=== PATIENT | male | born 1970 | race African-American/Black ===

== ENCOUNTER 2017-08-12 19:44 | Emergency (ER) | payer SELFPAY ==
[2017-08-12] MEDS ORDERED: Lidocaine 1% with EPINEPHrine 1:100,000 20 ML MDV INJECT ONE (21:50)
[2017-08-12] MEDS ORDERED: Doxycycline 100 MG Cap PO ONE (21:50)
--- NOTE | 2017-08-12 21:56 | EDM.PDOC ---
ED HPI GENERAL MEDICAL PROBLEM - General Chief Complaint: Laceration Stated Complaint: [facility] Time Seen by Provider: 08/12/17 21:35 Source of Information: Reports: Patient History Limitations: Reports: No Limitations - History of Present Illness INITIAL COMMENTS - FREE TEXT/NARRATIVE: Patient is a 47-year-old male who presents to the ED complaining of laceration to the left ferrer. Patient was running from a dog and jumped over a brick wall hitting his left ferrer on the wall causing a flap laceration. This just happened prior to arrival. Tetanus status is up-to-date. Bleeding minimal. Pain localized. In addition he has an infection between the left 4th and 5th toe on the left foot. Has mild pain to the left 5th toe with mild redness. He is not a diabetic. No drainage noted. This infection has been present for 1 month. No significant swelling noted. Left Lower Leg Pain Score (Numeric/FACES): 10 - Related Data Allergies Allergy/AdvReac Type Severity Reaction Status Date / Time No Known Allergies Allergy Verified 08/12/17 19:50 Home Meds: Home Meds Doxycycline [Vibramycin] 100 mg PO BID #20 cap 08/12/17 [Rx] Past Medical History - Past Health History Medical/Surgical History: Denies Medical/Surgical History Social & Family History - Tobacco Use Smoking Status *Q: Unknown Ever Smoked ED ROS GENERAL - Review of Systems Review Of Systems: ROS reveals no pertinent complaints other than HPI. ED EXAM, SKIN/RASH Exam: See Below Exam Limited By: No Limitations General Appearance: Alert, WD/WN, No Apparent Distress Ears: Hearing Grossly Normal Nose: Normal Inspection Throat/Mouth: Normal Voice, No Airway Compromise Respiratory/Chest: No Respiratory Distress, Lungs Clear, Normal Breath Sounds, No Accessory Muscle Use Cardiovascular: Normal Peripheral Pulses, Regular Rate, Rhythm Peripheral Pulses: 4+: Radial (L) Extremities: Other (Flap laceration to the left ferrer with no foreign debris noted. Minimal pain with palpation. No bony abnormalities. Mild infection between the left 4th and 5th toe. Mild redness to the left 5th toe. Minimal pain on palpation. No drainage noted. Patient has no pain with flexion/ extension of the toe. No redness noted spreading up his foot. ) Neurological: Alert, Oriented, CN II-XII Intact, Normal Cognition, No Motor/ Sensory Deficits ED SKIN PROCEDURES - Laceration/Wound Repair Left Leg Lac/Wound length In cm: 4.5 (left anterior ferrer, v-shaped flap injury.) Appearance: Subcutaneous, Clean Distal NVT: Neuro & Vascular Intact Anesthetic Type: Local Local Anesthesia - Lidocaine (Xylocaine): 1% with EPI Local Anesthetic Volume: Other (6 mls) Skin Prep: Chlorhexidine (Hibiciens), Saline, Sterile Drape Exploration/Debridement/Repair: Wound Explored, In a Bloodless Field, Explored to Base, Minimal Debridement, No Foreign Material Found, Wound Margins Revised Closed with: Sutures Suture Size: 4-0 # of Sutures: 9 Suture Type: Prolene, Interrupted, Simple Drain Placement: No Sterile Dressing Applied: Nurse Tetanus Status Addressed: Yes Complications: No Course - Vital Signs Last Recorded V/S: Last Vital Signs Temp 98.5 F 08/12/17 19:48 Pulse 18 L 08/12/17 19:48 Resp 18 08/12/17 19:48 BP 178/88 H 08/12/17 19:48 Pulse Ox 100 08/12/17 19:48 - Orders/Labs/Meds Meds: Medications Discontinued Medications Generic Name Dose Route Start Last Admin Trade Name Carmeloq PRN Reason Stop Dose Admin Doxycycline Hyclate 200 mg 08/12/17 21:50 08/12/17 21:57 Vibramycin PO 08/12/17 21:51 200 mg ONETIME ONE Administration Lidocaine/Epinephrine 20 ml 08/12/17 21:50 08/12/17 21:57 Xylocaine 1% With Epinephrine 1:100,000 INJECT 08/12/17 21:51 20 ml ONETIME ONE Administration - Re-Assessments/Exams Free Text/Narrative Re-Assessment/Exam: Ordered doxycycline 200mg mg by mouth and also lidocaine with epi. Laceration closed with no complications. Dressing applied per nursing staff. Large callus between the left 4th and 5th toe removed. No drainage noted. NO open sore present. Will treat for soft tissue infection. Little toe is mildly red with pain present. Discharge instructions as documented. Departure - Departure Time of Disposition: 23:12 Disposition: Home, Self-Care 01 Condition: Good Clinical Impression: Toe infection Laceration of leg Qualifiers: Encounter type: initial encounter Laterality: left Qualified Code(s): S81.812A - Laceration without foreign body, left lower leg, initial encounter - Discharge Information Prescriptions: Doxycycline [Vibramycin] 100 mg PO BID #20 cap Instructions: Laceration Care, Adult, Wound Care, Adult, Stitches, Dumont, or Adhesive Wound Closure Referrals: PCP,Unknown [Primary Care Provider] - Forms: ED Department Discharge Additional Instructions: Take doxycycline 100mg twice a day for 10 days. Cleanse laceration site twice daily with soap and water, pat dry, reapply triple antibiotic ointment, and dressing. Keep laceration clean and dry. Do not soak wound. Sutures come out in 10 days. See a provider at the [facility] here in [place] to have them removed for free. Do not suggest participating in any activities that may break the sutures causing the laceration to open up. Take ibuprofen and tylenol in alternating fashion for pain. Return to the E.D. if you develop any new or worsening symptoms.
== END 2017-08-12 23:26 | disposition home or self-care (01) ==
LOC: EDSEX 19:44 → JD.ED 19:44
DX: S81.812A Laceration without foreign body, left lower leg, initial encounter (principal); L08.9 Local infection of the skin and subcutaneous tissue, unspecified; W22.01XA Walked into wall, initial encounter; Y93.02 Activity, running
CPT/HCPCS: 12002; 99284; A9270